=== PATIENT | female | born 1995 | race African-American/Black ===

== ENCOUNTER 2020-04-05 20:54 | Emergency (ER) | payer OTHER, SELFPAY ==
--- NOTE | 2020-04-05 21:00 | ED.EXTPRO ---
HPI - Extremity Problem General Chief complaint: Extremity Injury, Lower Stated complaint: left calf pain Time Seen by Provider: 04/05/20 20:55 Source: patient and family Mode of arrival: Ambulatory Limitations: no limitations History of Present Illness HPI Narrative: 24-year-old female nonsmoker presents with family and chief complaint of pain and swelling in her left calf over the course of the day. A few days ago she had surgery at the [employer] to repair her left ACL. Over the course of the past day or 2 she has noted increased swelling in her lower extremity with increasing pain and her grandmother told her to come and get checked for a clot. She denies any redness or warmth of the knee. She has had no fever or chills. She denies any red streaking. She has had no pain in her medial thigh but does have some tenderness in her left groin. She denies chest pain or shortness of breath. She is not dizzy nor weak or lightheaded. Her pain is worse with motion and improves with rest. She denies any numbness, tingling or weakness MD Complaint: extremity pain and extremity swelling Onset (ago): day(s) Pain Consistency: constant Location: left Quality: aching Radiation: none Relieving factors: rest Exacerbating factors: range of motion Associated symptoms: denies other symptoms Related Data Previous Rx's Medication Instructions Recorded apixaban [Eliquis DVT-PE Treat 30D See Rx Instructions .ROUTE 04/05/20 Start] .COMPLEX #74 ea Review of Systems Constitutional Constitutional: Denies chills, Denies fatigue, Denies fever(s), Denies frequent falls, Denies lethargy and Denies weakness Eyes Eyes: Denies change in vision, Denies eye discharge, Denies irritation and Denies loss of vision ENT Ears, Nose, Mouth, and Throat: Denies change in voice, Denies dizziness, Denies neck pain, Denies sore throat and Denies throat swelling Cardiovascular Cardiovascular: Denies chest pain, Denies irregular heart rhythm, Reports leg edema, Denies lightheadedness, Denies palpitations, Denies dyspnea, Denies dyspnea on exertion and Denies orthopnea Respiratory Respiratory: Denies cough, Denies dyspnea, Denies dyspnea on exertion and Denies wheezing Gastrointestinal Gastrointestinal: Denies abdominal pain, Denies change in bowel habits, Denies diarrhea, Denies nausea and Denies vomiting Musculoskeletal Musculoskeletal: Reports arthralgias, Reports joint swelling, Reports limited range of motion, Denies neck pain and Denies numbness Integumentary/Breasts Skin/Breast: Denies pruritus, Denies erythema, Denies rash and Denies wounds Neurologic Neurologic: Denies behavioral changes, Denies confusion, Denies dizziness, Denies frequent falls, Denies loss of vision, Denies numbness and Denies weakness Psychiatric Psychiatric: Denies anxiety, Denies behavioral changes, Denies confusion, Denies depression, Denies homicidal ideation and Denies suicidal ideation Endocrine Endocrine: Denies fatigue, Denies flushing and Denies palpitations Hematologic/Lymphatic Hematologic/Lymphatic: Denies easy bruising Allergic/Immunologic Allergic/Immunologic: Denies urticaria, Denies throat swelling and Denies wheezing Patient History Social History Smoking Status: Never smoker Smoking Status: Never smoker alcohol intake frequency: 0-2 drinks per day Substance Use Type: does not use Exam Narrative Exam Narrative: GENERAL: [24] year old patient appears stated age. Well-nourished, well-developed patient, in mild distress. HEAD: Atraumatic. Normocephalic. EYES: Pupils equal round and reactive. Extraocular motions intact. No scleral icterus. No injection or drainage. ENT: Nose without bleeding, purulent drainage. Throat without erythema, tonsillar hypertrophy or exudate. Airway patent. NECK: Trachea midline. Non tender CARDIOVASCULAR: Regular rate and rhythm without murmurs, gallops, or rubs. RESPIRATORY: Clear to auscultation. Breath sounds equal bilaterally. No wheezes, rales, or rhonchi. GASTROINTESTINAL: Abdomen soft, non-tender, nondistended. EXTREMITIES: Left knee swelling with range of motion limited due to pain and, likely swelling. The swelling is in the range of what I would expect postoperatively. No redness or warmth. Incisions are clean, dry and intact. Patient does have swelling of her left calf with some tenderness upon squeezing. Sensation intact. BACK: Nontender without deformity or crepitance. No flank tenderness. NEURO: AOx3. SKIN: No rash or erythema of visible areas Initial Vital Signs Initial Vital Signs: Vital Signs Temperature 98.8 F 04/05/20 21:03 Pulse Rate 93 H 04/05/20 21:03 Respiratory Rate 16 04/05/20 21:03 Blood Pressure 145/87 H 04/05/20 21:03 Pulse Oximetry 99 04/05/20 21:03 Course Orders Ordered: ED Orders 04/05/20 20:59 US perip venous low extrem lt Stat Discontinued Medications Enoxaparin Sodium (Enoxaparin 100 Mg/Ml Syringe) 100 mg 1 mg/kg (100 mg) SUBCUT NOW ONE Stop: 04/05/20 21:50 Last Admin: 04/05/20 21:57 Dose: 100 mg Documented by: CHASITY Vital Signs Vital signs: Vital Signs - 8 hr 04/05/20 21:03 04/05/20 22:31 Temperature 98.8 F Pulse Rate 93 H 69 Respiratory Rate 16 17 Blood Pressure 145/87 H 132/88 Pulse Oximetry 99 100 MDM - Extremity (Nontraumatic) Imaging Data US - DVT: Radiologist's Impression: [address] [id number] ReportSigned Patient: Aaron Cordon SMR#: [id number]: [id number]:[id number]/Sex: 24 / FDate of Service: 04/05/20Loc: EDAccession Number: [id number] Procedure: perip venous low extrem lt Ordering Provider: Anatoliy Contreras D.O. PROCEDURE: PERIP VENOUS LOW EXTREM LT INDICATIONS: CALF PAIN, EDEMA POST OP TECHNIQUE: Real-time imaging, as well as color and pulse Doppler interrogation, were performed of the lower extremity deep veins from the inguinal ligament to the popliteal fossa. COMPARISON: None. FINDINGS: There is partial thrombosis within the popliteal vein. Remaining deep venous structures are widely patent. IMPRESSION: Partial deep venous thrombosis of the popliteal vein without complete occlusion. Dictated by: Elsa Rangel M.D. on 04/05/2020 at 21:54 Approved by: Elsa Rangel M.D. on 04/05/2020 at 21:55 Discharge Plan Departure Patient Disposition: Home Clinical Impression: DVT (deep venous thrombosis) Qualifiers: DVT location: lower extremity Affected thrombotic vein of extremity: popliteal Chronicity: acute Laterality: left Qualified Code(s): I82.432 - Acute embolism and thrombosis of left popliteal vein Instructions: DI for Deep Vein Thrombosis Activity Restrictions/Additional Instructions: *You have been diagnosed with [DVT behind your left knee.] *What to do: *Take medications as directed *Follow up with your orthopedist on Tuesday as planned. Let them know you were seen in the Emergency Department and that we ask that you be seen in follow up *Return to ER if you should have any new, worsening or concerning symptoms, such as [bleeding in your urine, bowels, significant change in swelling or pain of knee, chest pain, shortness of breath, fever, shaking chills or other bothersome symptoms] Prescriptions: New Eliquis DVT-PE Treat 30D Start 5 mg (74 tabs) tablets,dose pack See Rx Instructions .ROUTE .COMPLEX Qty: 74 RF: 0
[2020-04-05 21:03] VITALS: BP 145/87; PULSE 93; RESP 16; TEMP 37.1; O2SAT 99; BMI 38.0
[2020-04-05] MEDS: ENOXAPARIN 100 MG/ML SYRINGE SUBCUT (21:57)
[2020-04-05 22:31] VITALS: BP 132/88; PULSE 69; RESP 17; O2SAT 100
== END 2020-04-05 22:31 | disposition home or self-care (01) ==
PROVIDERS: Emergency Provider Emergency Medicine
DX: I82.432 Acute embolism and thrombosis of left popliteal vein (principal)
CPT/HCPCS: 93971; 96372; 99281; 99283; J1650